=== PATIENT | female | born 1985 | race African-American/Black ===

== ENCOUNTER 2017-11-21 07:15 | Inpatient (IN) | payer OTHER ==
[2017-11-21 08:09] LABS: BASO % 0.3 % (0-2.0); EOS % 1.1 % (0-4.5); HEMOGLOBIN 10.5 GM/dL (10.7-15.3); MCH 21.8 pg (25.7-33.7); MCHC 31.8 g/dl (32.0-36.0); MEAN CELL VOLUME 68.5 fl (80-96); MONO % 10.1 % (3.8-10.2); NEUT % 71.5 % (42.8-82.8); PLATELET COUNT 188 K/MM3 (134-434); RBC 4.81 M/mm3 (3.60-5.2); RDW 19.3 % (11.6-15.6); WHITE BLOOD COUNT 7.9 K/mm3 (4.0-10.0)
[2017-11-21 08:29] LABS: BLOOD UREA NITROGEN 3 mg/dL (7-18); CALCIUM 9.3 mg/dL (8.5-10.1); CO2 27 mmol/L (21-32); CREATININE 0.5 mg/dL (0.55-1.02); GLUCOSE,RANDOM 124 mg/dL (74-106)
[2017-11-21 08:32] VITALS: BMI 27.8
[2017-11-21 08:33] LABS: ANION GAP 10 (8-16); CHLORIDE 106 mmol/L (98-107); POTASSIUM 3.7 mmol/L (3.5-5.1); SODIUM 143 mmol/L (136-145)
[2017-11-21 08:36] LABS: INR 0.96 (0.82-1.09); PROTHROMBIN TIME (PATIENT) 10.9 SEC (9.7-13.0)
[2017-11-21] MEDS: DEXTROSE 5%-LACTATED RINGERS 1,000 ML IV SCH ×2 (09:00→19:40)
[2017-11-21] MEDS ORDERED: AMPICILLIN - 2 GM in SODIUM CHLORIDE 100 ML IVPB ONE (09:00)
[2017-11-21] MEDS ORDERED: AMPICILLIN SODIUM 2 GM VIAL ONE (09:04)
--- NOTE | 2017-11-21 09:18 | PN ---
Progress Note (short form) - Note Progress Note: cx 1 cm 50 vx -3, mi, fhr cat 1, cervidil inserted at 845 am
--- NOTE | 2017-11-21 09:25 | HP ---
Past Medical History - Primary Care Physician PCP:: Sukhjinder Calvin - Admission Chief Complaint: post date for cervidil induction History of Present Illness: 32 yo f , 40,3 weeks, hx of GDM,diet controlled, sickle cell trait, requesting induction of labor, risks ogf induction has explained to patient cx 1 cm 50 vx -3 ,mi, fhr cat 1, irregular contraction not felt by patient, History Source: Patient Limitations to Obtaining History: No Limitations (s/p iron transfusion) - Past Medical History ...: 3 ...Para: 2 ...Term: 3 ...LMP: 02/11/18 ... Weeks Gestation by Dates: 40.3 ...EDC by Dates: 11/18/17 ...EDC by Sono: 11/20/17 Heme/Onc: Yes: Anemia (h/o anemia during a7 & also when not .), Sickle Cell Trait Infectious Disease: Yes: Tuberculosis (quantiferon Pos). No: AIDS, HIV, STD's Psych: Yes: Other (declines mental illhealth) Endocrine: Yes: Diabetes Mellitus - Past Surgical History Past Surgical History: Yes: None Hx Myomectomy: No Hx Transabdominal Cerclage: No - Smoking History Smoking history: Never smoked Have you smoked in the past 12 months: No Aproximately how many cigarettes per day: 0 - Alcohol/Substance Use Hx Alcohol Use: No History of Substance Use: reports: None - Social History ADL: Independent History of Recent Travel: No Home Medications - Allergies Allergies/Adverse Reactions: Allergies Allergy/AdvReac Type Severity Reaction Status Date / Time No Known Drug Allergies Allergy Verified 11/21/17 08:09 - Home Medications Home Medications: Ambulatory Orders Ferrous Sulfate 325 mg PO BID 11/17/17 Review of Systems - Review of Systems Constitutional: reports: No Symptoms Eyes: reports: No Symptoms HENT: reports: No Symptoms Neck: reports: No Symptoms Cardiovascular: reports: No Symptoms Respiratory: reports: No Symptoms Gastrointestinal: reports: No Symptoms Genitourinary: reports: No Symptoms Breasts: reports: No Symptoms Reported Musculoskeletal: reports: No Symptoms Integumentary: reports: No Symptoms Neurological: reports: No Symptoms Endocrine: reports: No Symptoms Hematology/Lymphatic: reports: No Symptoms Physical Exam - Maternity Vital Signs: Vital Signs Temperature 98.0 F 11/21/17 08:21 Pulse Rate 85 11/21/17 08:21 Respiratory Rate 18 11/21/17 08:21 Blood Pressure 114/58 11/21/17 08:21 O2 Sat by Pulse Oximetry (%) Constitutional: Yes: Well Nourished, No Distress, Calm Eyes: Yes: WNL, Conjunctiva Clear, EOM Intact HENT: Yes: WNL, Atraumatic, Normocephalic Neck: Yes: WNL, Supple, Trachea Midline Cardiovascular: Yes: WNL, Regular Rate and Rhythm Breast(s): Yes: WNL - Abdominal Exam/OB Fundal Height: 40 Number of Fetuses: Single Presentation: Vertex Contractions: No Regularity: Irritability Intensity: Unaware Monitor Mode: External Heart Rate Location: [facility] Category: I Accelerations: Non-Uniform Decelerations: None - Vaginal Exam/OB Vaginal Bleediing: No Speculum Exam: No Dilatation (cm): 1 cm Effacement (%): 50 Amniotic Membrane Status: Intact Presentation: Vertex/Position Station: -3 - Physical Exam Musculoskeletal: Yes: Back Pain Edema: LLE: Trace, RLE: Trace Deep Tendon Reflex Grade: Normal +2 Psychiatric: Yes: WNL - Labs Lab Results: CBC, BMP 11/21/17 07:50 11/21/17 07:50 Hemorrhage Risk Assessment - Risk Factors Medium Risk Factors: Yes: None High Risk Factors: Yes: None Risk Score: 1 Risk Level: Medium Risk Problem List - Problems (1) Post term over 40 weeks Code(s): O48.0 - POST-TERM (2) Gestational diabetes mellitus (GDM) Code(s): O24.419 - GESTATIONAL DIABETES MELLITUS IN , UNSP CONTROL Qualifiers: Gestational diabetes mellitus control: diet-controlled Trimester: third trimester Qualified Code(s): O24.410 - Gestational diabetes mellitus in , diet controlled (3) Anemia Code(s): D64.9 - ANEMIA, UNSPECIFIED Qualifiers: Anemia type: iron deficiency Assessment/Plan plan admit, FHM, BS monitoring, cervidil induction ,risks explained
[2017-11-21] MEDS ORDERED: PROMETHAZINE HCL 25 MG/1 ML VIAL IVPUSH ONE (09:27)
[2017-11-21] MEDS ORDERED: BUTORPHANOL TARTRATE 1 MG/ML VIAL IVPUSH ONE (09:27)
[2017-11-21] MEDS ORDERED: DINOPROSTONE 10 MG VAGINAL SUPPOSITORY VG ONE (10:02)
[2017-11-21] MEDS: AMPICILLIN - 1 GM in SODIUM CHLORIDE 100 ML IVPB SCH ×3 (13:00→21:00)
[2017-11-21] MEDS ORDERED: AMPICILLIN SODIUM 1 GM VIAL ONE ×2 (17:32→21:22)
[2017-11-21] MEDS ORDERED: BUTORPHANOL TARTRATE 1 MG/ML VIAL ONE ×2 (17:38)
[2017-11-21] MEDS ORDERED: PROMETHAZINE HCL 25 MG/1 ML VIAL ONE (17:38)
[2017-11-21 18:03] LABS: URINE APPEARANCE CLEAR; URINE BILIRUBIN NEGATIVE (<2.0 mg/dL); URINE COLOR COLORLESS; URINE GLUCOSE (UA) NEGATIVE (NEGATIVE); URINE KETONE NEGATIVE (NEGATIVE); URINE LEUK ESTERASE NEGATIVE (NEGATIVE); URINE NITRITE NEGATIVE (NEGATIVE); URINE PROTEIN NEGATIVE (NEGATIVE); URINE UROBILINOGEN NEGATIVE mg/dL (0.2-1.0)
--- NOTE | 2017-11-21 19:45 | PN ---
Progress Note (short form) - Note Progress Note: cx 4 cm 80 vx -2, fhr cat 1, irregular contraction, cervidil removed , arom, clear Problem List - Problems (1) Post term over 40 weeks Code(s): O48.0 - POST-TERM (2) Gestational diabetes mellitus (GDM) Code(s): O24.419 - GESTATIONAL DIABETES MELLITUS IN , UNSP CONTROL Qualifiers: Gestational diabetes mellitus control: diet-controlled Trimester: third trimester Qualified Code(s): O24.410 - Gestational diabetes mellitus in , diet controlled (3) Anemia Code(s): D64.9 - ANEMIA, UNSPECIFIED Qualifiers: Anemia type: iron deficiency
[2017-11-21] MEDS ORDERED: OXYTOCIN 30 UNITS in 0.9% NS 30 UNIT/500 ML INFUS.BAG IVPB SCH (20:00)
[2017-11-21] MEDS ORDERED: OXYTOCIN 30 UNITS in 0.9% NS 30 UNIT/500 ML INFUS.BAG IVPB ONE (20:21)
[2017-11-21 21:53] LABS: EPI CELLS RARE /HPF (FEW)
[2017-11-21] MEDS ORDERED: FENTANYL/BUPIVACAINE/NS/PF - PCEA - 50 ML DISP.SYRIN EP ONE (22:27)
[2017-11-21] MEDS ORDERED: NALOXONE HCL 0.4 MG/ML VIAL IVPUSH PRN (23:45)
[2017-11-21] MEDS ORDERED: FENTANYL/BUPIVACAINE/NS/PF - PCEA - 50 ML DISP.SYRIN EP SCH (23:45)
[2017-11-22] MEDS ORDERED: OXYTOCIN 20 UNITS in 0.9% NS 20 UNIT/1,000 ML INFUS.BAG IV ONE ×2 (00:08→04:24)
[2017-11-22] MEDS ORDERED: LIDOCAINE HCL 1% PRESERVATIVE FREE - 30ML VIAL ONE (00:08)
--- NOTE | 2017-11-22 00:25 | PN ---
Progress Note (short form) - Note Progress Note: cx full 100 vx 2+ fhr cat 1 wants to push Problem List - Problems (1) Post term over 40 weeks Code(s): O48.0 - POST-TERM (2) Gestational diabetes mellitus (GDM) Code(s): O24.419 - GESTATIONAL DIABETES MELLITUS IN , UNSP CONTROL Qualifiers: Gestational diabetes mellitus control: diet-controlled Trimester: third trimester Qualified Code(s): O24.410 - Gestational diabetes mellitus in , diet controlled (3) Anemia Code(s): D64.9 - ANEMIA, UNSPECIFIED Qualifiers: Anemia type: iron deficiency
[2017-11-22] MEDS: OXYTOCIN 20 UNITS in 0.9% NS 20 UNIT/1,000 ML INFUS.BAG IV SCH ×2 (00:40→04:00)
[2017-11-22] MEDS ORDERED: BENZOCAINE 28 GM HEMORRHOIDAL OINTMENT TP PRN (00:45)
[2017-11-22] MEDS ORDERED: oxyCODONE HCL 5 MG TABLET PO PRN (00:45)
[2017-11-22] MEDS ORDERED: BENZOCAINE 20% 57 GM BOTTLE TP PRN (00:45)
[2017-11-22] MEDS ORDERED: WITCH HAZEL 50% (TUCKS) 40 PAD/JAR PAD TP PRN (00:45)
[2017-11-22] MEDS ORDERED: BISACODYL 10 MG SUPP.RECT RC PRN (00:45)
[2017-11-22] MEDS ORDERED: METHYLERGONOVINE MALEATE 0.2 MG/1 ML AMP IM PRN (00:45)
[2017-11-22 01:41] LABS: ARTERIAL BLOOD GAS BASE EXCESS -2.5 meq/l (-2-2)
[2017-11-22 01:43] LABS: VENOUS PC02 50.9 mmHg (38-52)
[2017-11-22 01:45] LABS: ARTERIAL BLOOD GAS PCO2 65.2 mmHg (35-45); ARTERIAL BLOOD GAS PO2 15.7 mmHg (80-100); ARTERIAL BLOOD GAS pH 7.24 (7.35-7.45); VENOUS PH 7.23 (7.32-7.42); VENOUS PO2 16.8 mmHg (28-48)
[2017-11-22 01:46] LABS: ARTERIAL BLD GAS O2 SATURATION 22.1 % (90-98.9)
[2017-11-22] MEDS: IBUPROFEN 600 MG TABLET (FP) PO PRN ×3 (04:00→21:26)
[2017-11-22] MEDS: ACETAMINOPHEN 325 MG TABLET (FP) PO PRN ×2 (04:00→21:26)
[2017-11-22] MEDS ORDERED: ACETAMINOPHEN 325 MG TABLET (FP) ONE ×2 (04:09→09:50)
[2017-11-22] MEDS ORDERED: IBUPROFEN 600 MG TABLET (FP) PO ONE ×2 (04:09→09:50)
[2017-11-22] MEDS: PRENATAL VITAMINS W/ FOLIC ACID TABLET (FP) PO SCH (10:09)
[2017-11-22] MEDS: FERROUS SO4 325 MG TABLET (FP) PO SCH ×2 (10:09→21:26)
[2017-11-23 07:15] LABS: BASO % 0.2 % (0-2.0); EOS % 1.7 % (0-4.5); HEMATOCRIT 28.7 % (32.4-45.2); HEMOGLOBIN 9.3 GM/dL (10.7-15.3); MCH 22.1 pg (25.7-33.7); MCHC 32.4 g/dl (32.0-36.0); MEAN CELL VOLUME 68.3 fl (80-96); MEAN PLT VOLUME 8.7 fl (7.5-11.1); MONO % 8.6 % (3.8-10.2); NEUT % 65.5 % (42.8-82.8); PLATELET COUNT 160 K/MM3 (134-434); RDW 19.2 % (11.6-15.6); WHITE BLOOD COUNT 9.6 K/mm3 (4.0-10.0)
[2017-11-23 07:39] LABS: ADD RBC MORPHOLOGY YES
[2017-11-23] MEDS: FERROUS SO4 325 MG TABLET (FP) PO SCH ×2 (09:53→21:01)
[2017-11-23] MEDS: PRENATAL VITAMINS W/ FOLIC ACID TABLET (FP) PO SCH (09:54)
[2017-11-23] MEDS ORDERED: DIPHTH,PERTUSS(ACELL),TET 0.5 ML DISP.SYRIN IM ONE (10:00)
[2017-11-23 10:37] LABS: ANISOCYTOSIS 1+
[2017-11-23 10:38] LABS: PLATELET ESTIMATE ADEQUATE
--- NOTE | 2017-11-23 13:56 | PN ---
Post Progress Note - Subjective Subjective: 32 yo Para 3 status post vaginal delivery, seen and evaluated. Doing well. Post Day: 1 Type of Delivery: Vital Signs: Vital Signs Temperature 97.8 F 11/23/17 10:00 Pulse Rate 92 H 11/23/17 10:00 Respiratory Rate 20 11/23/17 10:00 Blood Pressure 117/64 11/23/17 10:00 O2 Sat by Pulse Oximetry (%) 100 11/22/17 02:00 Breast Exam: Yes: Soft Uterus: Yes: Fundus Firm Abdomen/GI: Yes: Abdomen soft, Tolerating PO Lochia: Yes: Rubra Lochia, amount: Moderate Extremities: Yes: Calves non-tender Activity: Ambulating - Labs Labs: CBC WBC 9.6 K/mm3 (4.0-10.0) 11/23/17 06:00 RBC 4.20 M/mm3 (3.60-5.2) 11/23/17 06:00 Hgb 9.3 GM/dL (10.7-15.3) L D 11/23/17 06:00 Hct 28.7 % (32.4-45.2) L 11/23/17 06:00 MCV 68.3 fl (80-96) L 11/23/17 06:00 MCH 22.1 pg (25.7-33.7) L 11/23/17 06:00 MCHC 32.4 g/dl (32.0-36.0) 11/23/17 06:00 RDW 19.2 % (11.6-15.6) H 11/23/17 06:00 Plt Count 160 K/MM3 (134-434) 11/23/17 06:00 MPV 8.7 fl (7.5-11.1) 11/23/17 06:00 Neutrophils % 65.5 % (42.8-82.8) 11/23/17 06:00 Lymphocytes % 24.0 % (8-40) D 11/23/17 06:00 Monocytes % 8.6 % (3.8-10.2) 11/23/17 06:00 Eosinophils % 1.7 % (0-4.5) 11/23/17 06:00 Basophils % 0.2 % (0-2.0) 11/23/17 06:00 Hypochromia 1+ 11/23/17 06:00 Platelet Estimate Adequate 11/23/17 06:00 Platelet Comment Few large plts 11/23/17 06:00 Polychromasia 1+ 11/23/17 06:00 Anisocytosis 1+ 11/23/17 06:00 Microcytosis 1+ 11/23/17 06:00 Assessment/Plan Status post vaginal delivery Stable Continue routine care
[2017-11-23] MEDS: ACETAMINOPHEN 325 MG TABLET (FP) PO PRN (20:31)
[2017-11-23] MEDS: IBUPROFEN 600 MG TABLET (FP) PO PRN (20:32)
[2017-11-23 20:36] VITALS: BP 129/59; PULSE 84
[2017-11-23] MEDS ORDERED: SENNOSIDES/DOCUSATE COMBO (SENNA PLUS) TABLET (UD) PO PRN (22:00)
--- NOTE | 2017-11-24 04:17 | DS ---
Physical Exam-[employer] Vital Signs: Vital Signs Temperature 98.0 F 11/23/17 20:35 Pulse Rate 84 11/23/17 20:35 Respiratory Rate 20 11/23/17 20:35 Blood Pressure 129/59 11/23/17 20:35 O2 Sat by Pulse Oximetry (%) 100 11/22/17 02:00 Constitutional: Yes: Well Nourished, No Distress, Calm Eyes: Yes: WNL, Conjunctiva Clear, EOM Intact HENT: Yes: WNL, Atraumatic, Normocephalic Neck: Yes: WNL, Supple, Trachea Midline Cardiovascular: Yes: WNL, Regular Rate and Rhythm Respiratory: Yes: WNL, Regular, CTA Bilaterally Gastrointestinal: Yes: WNL ...Rectal Exam: Yes: WNL Renal/: Yes: WNL External Genitalia: Yes: Normal ....Post : Yes: Uterus firm, Uterus non-tender, Slight lochia rubra Breast(s): Yes: WNL Musculoskeletal: Yes: WNL Extremities: Yes: WNL Edema: No Integumentary: Yes: WNL Neurological: Yes: WNL, Alert, Oriented ...Motor Strength: WNL Psychiatric: Yes: WNL, Alert, Oriented Labs: CBC, BMP 11/23/17 06:00 11/21/17 07:50 Delivery - Delivery Vaginal Delivery: Spontaneous Type of Anesthesia: Epidural Episiotomy/Laceration: None (no complication), Vaginal Extension/lac, 1st degree EBL (cc): 300 Delivery, Single - Stages of Labor Date 1st Stage Initiatied: 11/21/17 Time 1st Stage Initiated: 17:50 Date 2nd Stage Initiated: 11/21/17 Time 2nd Stage Initiated: 23:40 Date of Delivery: 11/22/17 Time of Delivery: 00:31 Time Placenta Delivered: 00:40 Placenta: Yes: Spontaneous - Condition of Infant House Mover Helper/Animal Care Worker Present: No Gender: Male Weight: 9 lb 9 oz Position: Left, OA Total Hours ROM (Hrs/Mins): 5hrs - 1 Minute Total Score: 8 5 Minutes Total Score: 9 - Feeding Plan Initial Plan: Elected not to breastfeed exclusively throughout hospitalization Discharge Summary Reason For Visit: LABOR Current Active Problems Anemia (Acute) Gestational diabetes mellitus (GDM) (Acute) Post term over 40 weeks (Acute) Procedures: Principal: Hospital Course: no complication Condition: Good - Instructions Diet, Activity, Other Instructions: regular diet, no intercourse, follow up [facility] care 4 weeks, if pain, heavy bleeding, fever call MD Referrals: Sukhjinder Calvin MD [Staff Physician] - Disposition: HOME - Home Medications Comprehensive Discharge Medication List: Ambulatory Orders Ferrous Sulfate 325 mg PO BID 11/17/17 Ibuprofen [Motrin -] 600 mg PO QID #28 tablet 11/23/17
[2017-11-24] MEDS: ACETAMINOPHEN 325 MG TABLET (FP) PO PRN (09:29)
[2017-11-24] MEDS: IBUPROFEN 600 MG TABLET (FP) PO PRN (09:29)
[2017-11-24] MEDS: FERROUS SO4 325 MG TABLET (FP) PO SCH (09:29)
[2017-11-24] MEDS: PRENATAL VITAMINS W/ FOLIC ACID TABLET (FP) PO SCH (09:40)
[2017-11-24 10:10] VITALS: TEMP 98.6
== END 2017-11-24 12:45 | disposition home or self-care (01) | DRG 775 ==
LOC: JLDR 07:15 → J3W 11-22 13:52
PROVIDERS: ADMIT Obstetrics & Gynecology; ATTEND Obstetrics & Gynecology
PROC: 3E0P7VZ Introduction of Hormone into Female Reproductive, Via Natural or Artificial Opening (ICD-10-PCS; 2017-11-21)
PROC: 10E0XZZ Delivery of Products of Conception, External Approach (ICD-10-PCS; principal; 2017-11-22)
PROC: 0HQ9XZZ Repair Perineum Skin, External Approach (ICD-10-PCS; 2017-11-22)
PROC: 0W8NXZZ Division of Female Perineum, External Approach (ICD-10-PCS; 2017-11-22)
DX: O70.0 First degree perineal laceration during delivery (principal); O99.02 Anemia complicating childbirth; O24.429 Gestational diabetes mellitus in childbirth, unspecified control; O48.0 Post-term pregnancy; Z3A.40 40 weeks gestation of pregnancy; Z37.0 Single live birth
CPT/HCPCS: 36415; 36600; 59409; 71046-TC-FY; 80048; 81003; 81015; 82803; 85025; 85610; 85730; 86593; 86850; 86900; 86901; 87086